=== PATIENT | female | born 1975 | race Caucasian/White ===

== ENCOUNTER 2020-03-18 00:45 | Day surgery (SDC) | payer BC, SELFPAY ==
[2020-03-08 11:43] VITALS: BMI 22.4
[2020-03-18] VITALS (8 sets, daily range): BP systolic 106–128; BP diastolic 68–90; PULSE 71–115; RESP 16–22; TEMP 36.3–37.2; O2SAT 100
--- NOTE | 2020-03-18 13:04 | WPDHPUPDATE1 ---
History and Physical Update Update Date/Time: 03/18/20 13:04 History and Physical has been reviewed, including an updated exam of the patient. There are NO changes in the patient's condition. Risks, benefits, and alternatives have been discussed and questions answered. Patient agrees to proceed with procedure. Plan laparoscopy tubal sterilization, mirena removal and mamadou endometrial ablation with hysteroscopy
[2020-03-18] MEDS: LACTATED RINGERS 1,000 ML 30 ML IV CONT ×2 (13:10→16:26)
[2020-03-18] MEDS: ACETAMINOPHEN 500 MG TABLET 1000 MG PO (13:12)
[2020-03-18] MEDS: KETOROLAC 15 MG/ML VIAL (*BKC) IV PUSH (13:12)
--- NOTE | 2020-03-18 13:45 | WPDANESEPPF ---
Anes - Initial Pre Proc Eval Procedure: Operation Date: 03/18/20 14:00 Proposed Procedures p Laparoscopic Bilateral Tubal Sterilization with Fulguration, Possible Left Ovarian Cystectomy - Jeny Deshpande MD s Hysteroscopy, Amanda Endometrial Ablation, Removal Intrauterine Device - Jeny Deshpande MD Date/Time: 03/18/20 13:45 Surgeon: Jeny Deshpande MD Pre Op Diagnosis: desired sterilization, abn uterine bleeding Patient Data Age: 44 Gender: F Height: 1.75 m Weight: 68.8 kg Last Vital Signs Temp 37.2 C 03/18/20 12:00 Pulse 71 03/18/20 12:00 Resp 16 03/18/20 12:00 BP 128/85 03/18/20 12:00 Pulse Ox 100 03/18/20 12:00 Allergies Allergy/AdvReac Type Severity Reaction Status Date / Time hydrocodone AdvReac SEVERE Verified 03/08/20 11:58 NAUSEA/VOMITING hydromorphone [From Dilaudid] AdvReac SEVERE Verified 03/08/20 11:58 NAUSEA/VOMITING tramadol AdvReac SEVERE Verified 03/08/20 11:58 NAUSEA/VOMITING NARCOTICS AdvReac SEVERE Uncoded 03/08/20 11:58 NAUSEA/VOMITING Home Medications Medication Instructions Recorded Confirmed Type cholecalciferol (vitamin D3) 125 mcg PO WEEKLY 03/08/20 03/18/20 History [Vitamin D3] Patient hx anesthesia problems: none Family hx anesthesia problems: none PMFSH Social History Social History Years smoked: 15 Smoking status: Former smoker Tobacco type: cigarettes Additional smoking assessment comments: QUIT 2009 Spiritual care concerns: No Anes - Eval Final PreProcedure Day of Procedure 03/18/20 13:45 Patient weight: normal Heart: regular rate and rhythm Lungs: clear to auscultation and normal air movement Airway: Mallampati scale class II Neurological: alert and oriented Last oral intake: >/= 8 hours ASA classification: II Emergent: no Anesthetic plan: proceed Anesthesia type and monitoring: general ETT and standard monitoring Informed Consent: The patient's anesthetic plan and its attendant risks and benefits were discussed with the patient/family/POA. Questions were solicited and answers provided to the satisfaction of the patient/family/POA.
--- NOTE | 2020-03-18 13:59 | WPDHPUPDATE1 ---
History and Physical Update Update Date/Time: 03/18/20 13:59 History and Physical has been reviewed, including an updated exam of the patient. There are NO changes in the patient's condition. Risks, benefits, and alternatives have been discussed and questions answered. Patient agrees to proceed with procedure.
[2020-03-18] MEDS: SCOPOLAMINE 1.5 MG PATCH TRANSDERM (14:25)
[2020-03-18] MEDS: KETOROLAC 30 MG/ML VIAL (*BKC) IV PUSH (15:45)
--- NOTE | 2020-03-18 16:14 | PM.PROC ---
Procedure Note - Detailed Date of procedure: 03/18/20 Pre-op diagnosis: desired sterilization, abn uterine bleeding desired IUD removal Post-op diagnosis: other (desired sterilization, abnormal uterine bleeding, bilateral ovarian cysts. Adhesions of bowel to anterior abdominal wall to the right of midline) Procedure performed: Laparoscopy, bilateral ovarian cystectomy, bilateral tubal sterilization with fulguration, hysteroscopy D&C and endometrial ablation, IUD removal, lysis of adhesions Description of procedure: The patient was taken to operating room where general anesthesia was adequate. She was prepared and draped in the dorsal lithotomy position in [facility] ([facility] A neville cather was inserted. A speculum used to visualize the cervix. A ring forcep used to grasp the string of the IUD which was removed easily. A single toothed tenaculum placed on the anterior lip, The uterus sounded to 7cm. Cervix length 1cm. Loami uterine manipulator placed. Attention was turned to the umbilicus which was injected with 0.25% marcaine with epinephrine, incised with a scalpel and veres needle used to enter into the peritoneum. Saline drop test was positive for entry. Pneumoperitoneium was created to 15mmHg. A 5mm port was placed with optical entry. The pateint was placed in Trendelenberg. There were adhesions noted in a linear pattern 2-3 cm lateral to the right of the umbilical port site. The liver and upper abdomen was clear of adhesions and appeared normal. The lower pelvis had adhesions of left adnexa to left pelvic side wall. A blood filled left ovarian cyst was noted and ruptured with elevation of the uterus with uterine manipulator. The right ovary also had a small bloody ovarian cyst. The right cyst was easily removed with gentle dissection with graspers. J hook cautery and bonnie powder used for hemostasis at the base of the cyst. The left ovary was encompassed in fine adhesions so these were taken down with scissors. The cyst on the left was opened at the dependant portion which was bleeding from manipulation of the uterus and the cyst wall grasp with marylands and pulled free from the ovary. There was some tubal dilation at the distal portion noted as well. Hemostasis was made with J hook cautery and bonnie powder at the base of the cyst and serosa edges cauterized. The left tube was then grasp with Balbina at the mid portion which was accessible. It was cauterized in two passes approximatey 2cm length. The right tube was cauterized in a similar fashion. Images taken at the completion of the case and pelvis cleared of fluid and blood. Pneumoperitoneum was released and prot sites removed. Skin closed with glue. Attention was then turned to the vagina where the neville catheter was removed. The speculum inserted and the uterine manipulator removed. The cervix serially dilated with Hegar dilators and the hysteroscope passed through the cervix using saline for distention (0.9%). Bilateral tubal cornua visualized and ostia present and normal. Lining with slight white fluffy endometrium. Camera removed and sharp currettage performed. The mamadou was prepared and inserted. Cavity assessment passed and the ablation began and completed without complication. The mamadou was removed and hysteroscope reinserted. The cavity had good coverage with ablation and the procedure was complete. The hysteroscope removed and the tenaculum removed. the tenaculum sites were hemostatic. The case was complete and all instruments and sponges were accounted for. [facility] Sur[facility]: Jeny Deshpande MD Estimated blood loss (mL): 20.0 Urine output (mL): 300 Drains: No Packing: No Pathology: yes (right and left ovarian cysts, and endometrial currettings) Complications: No immediate complications Condition: stable Disposition: same day
--- NOTE | 2020-03-18 16:53 | SUR.PHASEI ---
PT GRIMACING. STATES CRAMPING NOW 10/06. SHE WOULD LIKE PAIN MEDICINE
[2020-03-18] MEDS: fentaNYL CITRATE INJ (*CRX) 100 MCG/2 ML VIAL 25 MCG IV PUSH ×2 (16:57→17:13)
--- NOTE | 2020-03-18 17:03 | SUR.PHASEI ---
DR GRANADOS SPOKE TO PT'S MOTHER
--- NOTE | 2020-03-18 17:30 | SUR.PHASEI ---
PT AWAKE. STATES READY TO MOVE TO [facility]
== END 2020-03-18 18:12 | disposition home or self-care (01) ==
PROVIDERS: PCP Family Medicine; Visit Provider Obstetrics & Gynecology
PROC: (CPT 58671; principal; 2020-03-18 14:00)
PROC: 0U5B8ZZ Destruction of Endometrium, Via Natural or Artificial Opening Endoscopic (ICD-10-PCS; CPT 58563; 2020-03-18 14:00)
DX: Z30.2 Encounter for sterilization (principal); N93.9 Abnormal uterine and vaginal bleeding, unspecified; N73.6 Female pelvic peritoneal adhesions (postinfective); N83.12 Corpus luteum cyst of left ovary; N83.11 Corpus luteum cyst of right ovary; Z87.891 Personal history of nicotine dependence
CPT/HCPCS: 58670; 58662; 58563; 88305; A9270; J0330; J1100; J1170; J1885; J2250; J2405; J2704; J3010; J7030; J7120

== ENCOUNTER 2020-04-12 00:20 | Observation (INO) | payer BC, SELFPAY ==
--- NOTE | ~2020-04-12 | CT_ITS ---
EXAMINATION: CT abdomen pelvis w con DATE: 04/13/2020 08:06 INDICATION: Right lower quadrant abdominal pain. TECHNIQUE: Computed tomography (CT) of the abdomen and pelvis was performed with 100 mL Omnipaque 350 intravenous contrast. Automated exposure control and iterative reconstruction technique were employe d. The dose-length product was 389.20 mGy-cm. COMPARISON: None. FINDINGS: The visualized portions of the lung bases demonstrate minimal atelectasis. A calcified left lung nodule is consistent with old granulomatous disease. No pleural effusion. The heart size is nor mal. No pericardial effusion. There is a 2.0 cm low-attenuation mass in right hepatic lobe. There are changes of cholecystectomy. Calcifications in the spleen are consistent with old granulomatous disea se. The pancreas, adrenal glands, and kidneys are normal. There are no dilated loops of bowel. The ap pendix is not visualized. There is fat stranding in the right adnexa. There is trace pelvic ascites. There is mild aortocaval lymphadenopathy. There are chronic bilateral L5 pars defects. There is 8 mm anterolisthesis of L5 on S1. There is moderate degenerative disc disease at L5-S1. IMPRESSION: 1. Fat stranding in right adnexa, consistent with inflammation. 2. Appendix not visualized. 3. Mild aortocaval lymphadenopathy, likely reactive. 4. 2.0 cm liver mass, which may be benign or less likely malignant. Abdomen MRI without and with cont rast is recommended. Reviewed, dictated and finalized at location [facility] IMPRESSION: 1. Fat stranding in right adnexa, consistent with inflammation. 2. Appendix not visualized. 3. Mild aortocaval lymphadenopathy, likely reactive. 4. 2.0 cm liver mass, which may be benign or less likely malignant. Abdomen MRI without and with contrast is recommended.
--- NOTE | 2020-04-12 00:59 | ADMGEN ---
This patient, Trixie Fuentes, was admitted to [facility] Room 220-02. Patient/family oriented to hospital policies and general routines including ID bracelet, bed and alarms, visiting hours, pain management, procedures, bathroom and other care routines, personal items, smoking policy, room service/diet, and visiting hours. Information on how to activate the Rapid Response Team has been discussed. Patient/Family are encouraged to report perceived risks to care and to ask questions if they do not understand what they are told or what they should do.
[2020-04-12 01:06] VITALS: BP 109/65; PULSE 79; RESP 20; TEMP 36.1; O2SAT 100
[2020-04-12 01:11] VITALS: BMI 22.1
[2020-04-12] MEDS: ACETAMINOPHEN 325 MG TABLET 650 MG PO ×2 (01:39→11:19)
[2020-04-12] MEDS: LACTATED RINGERS 1,000 ML 100 ML IV CONT ×3 (01:41→22:54)
[2020-04-12 05:25] LABS: Basophils Percent Auto 0.4 % (0.2-1.2); Eosinophils Absolute Auto 0.1 K/mm3 (0-0.3); Eosinophils Percent Auto 0.7 % (0-4.4); Hematocrit 32.6 % (37.0-47.0); Hemoglobin 10.8 g/dL (12.0-15.0); Immature Granulocyte Absolute 0.04 K/mm3 (0.00-0.031); Immature Granulocyte Percent A 0.4 % (0-0.5); Lymphocytes Absolute Auto 2.17 K/mm3 (0.9-3.2); Lymphocytes Percent Auto 21.4 % (18.3-44.2); Mean Corpuscular HGB Conc 33.1 g/dl (32-36); Mean Corpuscular Hemoglobin 30.4 pg (26-34); Mean Corpuscular Volume 91.8 fl (80-100); Mean Platelet Volume 10.2 fl (7.4-10.4); Monocytes Absolute Auto 0.9 K/mm3 (0.1-0.6); Monocytes Percent Auto 8.7 % (2.6-8.5); Neutrophils Absolute Auto 6.9 K/mm3 (1.3-6.7); Neutrophils Percent Auto 68.4 % (45.5-73.1); Platelet Count Result 241 k/mm3 (150-375); Red Blood Count 3.55 M/mm3 (4.2-5.4); Red Cell Distribution Width 12.7 % (11.5-14.5); White Blood Count 10.1 K/mm3 (4.5-10.0)
[2020-04-12 05:37] VITALS: BP 105/64; PULSE 78; RESP 18; TEMP 36.3; O2SAT 100
[2020-04-12 05:49] LABS: Anion Gap 4 mmol/L (8-16); Blood Urea Nitrogen 9 mg/dL (7-17); Calcium 8.7 mg/dL (8.4-10.2); Carbon Dioxide 26 mmol/L (22-30); Chloride 106 mmol/L (98-107); Estimated CRCL calculation 94 ml/min; Estimated Glomerular Filt Rate > 60; Glucose 86 mg/dL (65-105); Potassium 3.9 mmol/L (3.4-5.0); Sodium 136 mmol/L (137-145)
[2020-04-12 08:49] VITALS: O2SAT 100
[2020-04-12] MEDS: MAGNESIUM CITRATE 300 ML BTL 150 ML PO (11:13)
--- NOTE | 2020-04-12 13:34 | PM.IMHP ---
H&P: HPI History of Present Illness Date/Time: 04/12/20 13:34 Chief complaint: RLQ pain Narrative: Trixie Fuentes is a 44 year old female who was transferred from [facility] with complaints of right lower quadrant pain over the past 2 days. Patient states that she has been having some generalized cramping abdominal pain and constipation since her laparoscopic tubal ligation and ovarian cystectomy about 3 weeks ago. She states that she has only had a couple bowel movements over the last 2-3 weeks. She has essentially been feeling this way since her surgery. She then noticed some more tenderness along her right lower quadrant that started about 2 days ago. She denies any fevers or chills. Denies any nausea or vomiting. She has never had symptoms like this before. Prior to her recent surgery, her bowel movements were pretty regular. When she presented to [facility] Emergency Department, a CT was performed and this showed stool throughout the entire colon suggesting constipation and a slightly dilated appendix measuring 7 mm. Some of the findings were unclear whether these were postoperative related or possible inflammation from early appendicitis. She was then transferred to [facility] for further evaluation and treatment. Review of Systems Review of Systems: All systems reviewed & are unremarkable except as noted in HPI and below Constitutional: Constitutional: Denies chills and Denies fever(s) Eyes: Eyes: Denies change in vision ENT: Denies hearing loss, Denies neck pain and Denies sore throat Cardiovascular: Cardiovascular: Denies chest pain and Denies dyspnea Respiratory: Respiratory: Denies cough, Denies dyspnea and Denies wheezing Gastrointestinal: Gastrointestinal: Reports as per HPI Genitourinary: Genitourinary: Denies hematuria and Denies dysuria Musculoskeletal: Musculoskeletal: Denies arthralgias, Denies joint swelling and Denies neck pain Allergic/Immunologic: Allergic/Immunologic: Denies wheezing PMFSH Surgical History Surgical History (Updated 04/12/20 @ 13:38 by Sathish Sim DO) History of ovarian cystectomy History of tubal ligation Family History Family History Mother Acute myocardial infarction Hypertension Sibling Hypertension Father Lung cancer Social History Social History Years smoked: 15 Smoking status: Former smoker Tobacco type: cigarettes Additional smoking assessment comments: QUIT 2008 Alcohol intake: current Drinks per week: 1 Substance use: never Spiritual care concerns: No Meds Home Medications and Allergies Home Medications Medication Instructions Recorded Confirmed Type No Home Medications 04/12/20 04/12/20 History Allergies Allergy/AdvReac Type Severity Reaction Status Date / Time hydrocodone AdvReac Severe SEVERE Verified 04/12/20 00:57 NAUSEA/VOMITING/DIZZINESS/BLOATED ABDOMEN tramadol AdvReac Severe SEVERE Verified 04/12/20 00:57 NAUSEA/VOMITING/DIZZINESS/BLOATED ABDOMEN hydromorphone [From Dilaudid] AdvReac SEVERE Verified 04/12/20 00:57 NAUSEA/VOMITING/DIZZINESS/BLOATED ABDOMEN Vital Signs Vital Signs - 24 hr 04/12/20 01:06 04/12/20 05:37 04/12/20 08:49 Temperature 36.1 C L 36.3 C L Pulse Rate 79 78 Respiratory Rate 20 18 Blood Pressure 109/65 105/64 Pulse Oximetry 100 100 100 Exam Const: General: alert; No acute distress Orientation/consciousness: patient oriented x3 Limitations: no limitations HENMT: Head: normocephalic and atraumatic Ears: hearing grossly normal bilaterally General nose exam: Normal external nose present and Normal nares present Mouth: Yes Normal oral and palatal mucosa present and Yes moist mucous membranes Eyes: General: appearance normal, both eyes and all related structures Conjunctivae: conjunctivae normal Sclera:
[2020-04-12 14:00] VITALS: BP 114/65; PULSE 68; RESP 18; TEMP 36.9; O2SAT 99
[2020-04-12] MEDS: KETOROLAC 10 MG TABLET PO ×2 (15:33→22:51)
[2020-04-12] MEDS: BISACODYL 10 MG SUPPOSITORY RECTAL (17:54)
[2020-04-12 21:30] VITALS: BP 121/64; PULSE 91; RESP 12; TEMP 37.2; O2SAT 97
[2020-04-12] MEDS: ONDANSETRON INJ 4 MG/2 ML VIAL IV PUSH (22:51)
[2020-04-12] MEDS: diphenhydrAMINE HCl INJ 50 MG/ML VIAL IV PUSH (22:51)
[2020-04-13 05:07] LABS: Basophils Percent Auto 0.4 % (0.2-1.2); Eosinophils Absolute Auto 0.1 K/mm3 (0-0.3); Eosinophils Percent Auto 0.5 % (0-4.4); Hematocrit 32.2 % (37.0-47.0); Hemoglobin 10.7 g/dL (12.0-15.0); Immature Granulocyte Absolute 0.05 K/mm3 (0.00-0.031); Immature Granulocyte Percent A 0.5 % (0-0.5); Lymphocytes Absolute Auto 1.99 K/mm3 (0.9-3.2); Mean Corpuscular HGB Conc 33.2 g/dl (32-36); Mean Corpuscular Hemoglobin 30.7 pg (26-34); Mean Corpuscular Volume 92.5 fl (80-100); Mean Platelet Volume 9.8 fl (7.4-10.4); Monocytes Absolute Auto 0.8 K/mm3 (0.1-0.6); Monocytes Percent Auto 7.2 % (2.6-8.5); Neutrophils Absolute Auto 7.6 K/mm3 (1.3-6.7); Neutrophils Percent Auto 72.4 % (45.5-73.1); Platelet Count Result 246 k/mm3 (150-375); Red Blood Count 3.48 M/mm3 (4.2-5.4); Red Cell Distribution Width 12.5 % (11.5-14.5); White Blood Count 10.5 K/mm3 (4.5-10.0)
[2020-04-13 05:36] LABS: Anion Gap 6 mmol/L (8-16); Blood Urea Nitrogen 5 mg/dL (7-17); Calcium 8.6 mg/dL (8.4-10.2); Carbon Dioxide 28 mmol/L (22-30); Chloride 104 mmol/L (98-107); Estimated CRCL calculation 108 ml/min; Estimated Glomerular Filt Rate > 60; Glucose 89 mg/dL (65-105); Potassium 4.3 mmol/L (3.4-5.0); Sodium 138 mmol/L (137-145)
[2020-04-13 06:00] VITALS: BP 102/60; PULSE 78; RESP 12; TEMP 36.3; O2SAT 99
[2020-04-13 14:00] VITALS: BP 107/63; PULSE 80; RESP 16; TEMP 36.6; O2SAT 99
--- NOTE | 2020-04-13 14:00 | PM.DS ---
DS: Admitting Diagnosis Admitting Diagnosis Admitting Diagnosis: RLQ Abdominal pain Constipation DS: Discharge Diagnosis Discharge Diagnosis (1) Constipation: Qualifiers: Constipation type: unspecified constipation type Qualified Code(s): K59.00 - Constipation, unspecified Code(s): K59.00 - Constipation, unspecified Status: Acute (2) Right lower quadrant pain: Code(s): R10.31 - Right lower quadrant pain Status: Acute DS: Summary Hospital Course Reason for hospitalization: Trixie Fuentes is a 44 year old female who was transferred from [facility] with complaints of right lower quadrant pain for 2 days. She reported cramping abdominal pain and constipation since her laparoscopic tubal ligation and ovarian cystectomy about 3 weeks prior to admission. She had only a couple of bowel movements since surgery. She began noticing some tenderness over her RLQ and was evaluated in the [facility] ER, where a CT of the abdomen and pelvis showed stool throughout the entire colon suggesting constipation and a slightly dilated appendix measuring 7 mm. Some of the findings were unclear whether these were postoperative related or possible inflammation from early appendicitis. She was then transferred to [facility] for further evaluation and treatment. Hospital Course: The patient was admitted and evaluated. Her clinical picture seemed to correlate with constipation rather than early acute appendicitis. She was treated with bowel stimulation and given a half bottle of magnesium citrate. While stimulating her bowels, we closely monitored for any worsening symptoms or changes. Labs were monitored and essentially unchanged today compared to admission. She was kept on a clear liquid diet until today and has been tolerating this well. Another dose of magnesium citrate was given this morning since she had not responded to the initial dose. I then saw the patient this afternoon and she has had 5-6 bowel movements. She feels significantly better than she did yesterday. She reports still very mild right lower quadrant pain and lower abdominal cramping that nearly subsided after moving her bowels. Overall her pain is much better on my exam today. She states that she now feels mostly tender in her left upper abdomen. No fevers or chills. No other changes. CT of the abdomen and pelvis was repeated today and showed fat stranding in right adnexa, consistent with inflammation, and appendix not visualized. She has responded well to treating the constipation and shown no changes that point more towards acute appendicitis. Therefore, with the repeat imaging and her clinical picture again today correlating more with constipation, we will continue to treat this as such. We have started advancing her diet and if she tolerates this well after dinner, then we will discharge her home. Since there has been no further evidence of appendicitis or changes in her clinical picture, we will defer antibiotic treatment at this time. Instructed the patient to return to the ER if she develops worsening abdominal pain or fever. Follow-up with Gynecology. Status at Discharge Functional status at discharge: independent ambulation Overall status at discharge: patient is progressing back to baseline Time Spent with Patient Time attestation: Total time spent providing and/or coordinating discharge services: Time spent: Less than 30 minutes Exam Const: General: comfortable, no acute distress, alert and awake Orientation/consciousness: patient oriented x3 Resp: Effort & Inspection: normal respiratory effort and able to speak in complete sentences Auscultation: clear to auscultation bilaterally Cardio: Rate: regular rate Rhythm: regular rhythm GI: Inspection: normal to inspection and non-distended GI Palp: Yes Soft to palpation, Yes Tenderness to palpation present (GI) (very mild tenderness in RLQ, mostly tender in epigastric/LUQ), No Guarding due to pal
--- NOTE | 2020-04-13 15:57 | PC.NURSE ---
Maria Luz in to see pt she has been having several loose BM's since her mag citrate today. Her diet was advanced to full liquid diet just after lunch and tolerated well. She had some ice cream and tomato soup. MD wanted her to eat a regular diet and if she did not have increased abdominal pain she could dc to home. They were not planning any antibiotic therapy at home at this time. Trixie is aware of all the changes and is anxious to go home. She is also aware if she experiences constipation issues at home may take mirolax an follow up with her grief counselor.
[2020-04-13] MEDS: MAGNESIUM CITRATE 300 ML BTL 150 ML PO (17:25)
== END 2020-04-13 19:05 | disposition home or self-care (01) ==
PROVIDERS: Admitting Provider Surgery; PCP Family Medicine; Visit Provider Surgery
DX: K59.00 Constipation, unspecified (principal); R10.31 Right lower quadrant pain
CPT/HCPCS: 36415; 74177; 80048; 85025; 96361; 96374; 96375; A9270; G0378; J1200; J2405; J7120; Q9967